=== PATIENT | male | born 1995 | race Caucasian/White ===

== ENCOUNTER 2019-05-17 17:37 | Emergency (ER) | payer OTHER ==
[2019-05-17 17:51] VITALS: BP 108/66; PULSE 73; TEMP 98.3; BMI 26.6
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
[2019-05-17] MEDS ORDERED: ACETAMINOPHEN 500 MG TABLET (FP) PO ONE (18:24)
[2019-05-17] MEDS ORDERED: ACETAMINOPHEN 500 MG TABLET (FP) ONE (18:26)
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
[2019-05-17] MEDS ORDERED: KETOROLAC TROMETHAMINE 30 MG/1 ML VIAL IM ONE (19:08)
[2019-05-17] MEDS ORDERED: diazePAM 5 MG TABLET PO ONE (19:08)
[2019-05-17] MEDS ORDERED: KETOROLAC TROMETHAMINE 30 MG/1 ML VIAL ONE (19:15)
== END 2019-05-17 19:57 | disposition home or self-care (01) ==
LOC: JERFT 17:37
PROC: 3E0233Z Introduction of Anti-inflammatory into Muscle, Percutaneous Approach (ICD-10-PCS; principal; 2019-05-17)
DX: S06.0X9A Concussion with loss of consciousness of unspecified duration, initial encounter (principal); V43.62XA Car passenger injured in collision with other type car in traffic accident, initial encounter; W22.12XA Striking against or struck by front passenger side automobile airbag, initial encounter; Y92.411 Interstate highway as the place of occurrence of the external cause; Y93.89 Activity, other specified; Y99.8 Other external cause status
CPT/HCPCS: 70450-TC; 72125-TC; 99284-25